=== PATIENT | female | born 1965 | race Caucasian/White ===

== ENCOUNTER 2023-07-14 23:19 | Emergency (ER) | payer OTHER ==
[~2023-07-14] VITALS: Ht 177.8 cm; Wt 99.8 kg
[2023-07-14 23:53] VITALS: BP_SYST 129; PULSE 76; RESP 16; TEMP 97.7; O2SAT 97
== END 2023-07-15 00:57 | disposition left against medical advice (07) ==
LOC: SED 23:19
DX: H92.02 Otalgia, left ear (principal); Z53.21 Procedure and treatment not carried out due to patient leaving prior to being seen by health care provider